=== PATIENT | male | born 1965 | race Caucasian/White ===

== ENCOUNTER 2021-10-17 00:22 | Emergency (ER) | payer OTHER ==
[2021-10-17 01:04] LABS: BASOPHIL 0.8 % (0-2); EOSINOPHIL 4.4 % (0-5); HCT 40.5 % (42.0-52.0); HGB 13.8 g/dl (13.2-18.0); LYMPHOCYTE 34.2 % (15-48); MCH 30.9 pg (25.0-31.0); MCHC 34.1 g/dL (32.0-36.0); MCV 90.6 fL (78.0-100.0); MONOCYTE 7.8 % (0-12); NEUTROPHIL 52.6 % (41-80); NRBC 0; PLT 205 K/uL (150-400); RBC 4.47 M/uL (4.70-6.00); RDW 12.8 % (11.5-14.0); WBC 6.4 K/uL (4.0-10.5)
[2021-10-17 01:28] LABS: INR 0.87 (0.9-1.2); PROTHROMBIN TIME 11.3 SECONDS (11.8-13.4)
[2021-10-17 01:29] LABS: PTT 25.8 SECONDS (24.4-34.7)
[2021-10-17 01:31] LABS: D-DIMER < 0.27 ug/mLFEU (0.00-0.41)
[2021-10-17 01:43] LABS: ALBUMIN 3.8 g/dL (3.4-5.0); ALKALINE PHOSHATASE 90 U/L (46-116); ALT 37 U/L (16-63); AST 16 U/L (15-37); BILIRUBIN - TOTAL 0.3 mg/dL (0.2-1.0); BUN 16 mg/dL (7-18); BUN/CREAT RATIO (CALC) 22.2 RATIO; CHLORIDE 106 mmol/L (98-107); CO2 (BICARBONATE) 26 mmol/L (21-32); CREATININE 0.72 mg/dL (0.67-1.17); GLOBULIN (CALCULATION) 2.9 g/dL; GLUCOSE 162 mg/dL (74-106); LIPASE 156 U/L (73-393); POTASSIUM 3.9 mmol/L (3.5-5.1); TOTAL PROTEIN 6.7 g/dL (6.4-8.2)
[2021-10-17 01:45] LABS: C-REACTIVE PROTEIN < 0.20 mg/dL (<=0.90); PRO-BNP 805 pg/mL (<125)
[2021-10-17 02:20] LABS: INFLUENZA A NAA NEGATIVE (NEGATIVE)
[2021-10-17 02:21] LABS: CORONAVIRUS 2019 SARS-COV-2 POSITIVE (NEGATIVE)
== END 2021-10-18 11:17 | disposition other institution (70) ==
LOC: FER 00:22
PROVIDERS: Emergency Medicine Emergency Medical Services
DX: U07.1 COVID-19 (principal); R07.89 Other chest pain; E11.9 Type 2 diabetes mellitus without complications; Z79.84 Long term (current) use of oral hypoglycemic drugs
CPT/HCPCS: 36415; 36600; 71045; 71275; 78452; 80053; 82803; 83690; 83880; 84145; 84484; 85025; 85379; 85610; 85730; 86140; 93005; 93017; A9500; J0153; J2270; J2405; Q9967; U0002